=== PATIENT | male | born 1960 | race Two or more races ===

== ENCOUNTER 2019-05-10 05:29 | Day surgery (SDC) | payer OTHER ==
[2019-05-10] MEDS ORDERED: DICLOFENAC 0.1% 2.5 ML OPH (06:20)
[2019-05-10] MEDS ORDERED: TROPICAMIDE 1% 15 ML OPH (06:20)
[2019-05-10] MEDS ORDERED: CYCLOPENTOLATE/PHENYLEPH 2 ML OPH (06:20)
[2019-05-10] MEDS ORDERED: MOXIFLOXACIN 0.5% 3 ML OPH (06:20)
[2019-05-10] MEDS: TROPICAMIDE 1% 15 ML OPH OPER (06:23)
[2019-05-10] MEDS: MOXIFLOXACIN 0.5% 3 ML OPH OPER (06:23)
[2019-05-10] MEDS: DICLOFENAC 0.1% 2.5 ML OPH OPER (06:24)
[2019-05-10] MEDS: CYCLOPENTOLATE/PHENYLEPH 2 ML OPH OPER (06:24)
[2019-05-10] MEDS: SOD CHLORIDE 0.9% 1,000 ML IV (06:26)
[2019-05-10] MEDS: CARBACHOL 0.01% 1.5 ML OPH INJ IO (07:00)
[2019-05-10] MEDS: CEFAZOLIN 1 GM INJ INJ (07:00)
[2019-05-10] MEDS: LIDOCAINE 4% (MPF) 5 ML INJ INJ (07:00)
[2019-05-10] MEDS: DEXAMETHASONE 4 MG/ML 1 ML INJ INJ (07:00)
[2019-05-10] MEDS: LIDOCAINE 1% (MPF) 5 ML VIAL INJ (07:30)
[2019-05-10] MEDS ORDERED: PROPOFOL 20 ML (07:33)
[2019-05-10] MEDS ORDERED: LIDOCAINE 2% (SDV) 5 ML INJ (07:34)
[2019-05-10] MEDS ORDERED: FENTAnyl 50 MCG/ML VIAL (07:49)
[2019-05-10] MEDS ORDERED: MIDAZOLAM 1 MG/ML 2 ML INJ (07:50)
[2019-05-10] MEDS: HYDROCODONE/APAP (5/325) TAB PO (10:04)
== END 2019-05-10 11:40 | disposition home or self-care (01) ==
LOC: SDS 05:29
DX: H25.12 Age-related nuclear cataract, left eye (principal); E11.9 Type 2 diabetes mellitus without complications; I10 Essential (primary) hypertension; Z79.82 Long term (current) use of aspirin; Z79.84 Long term (current) use of oral hypoglycemic drugs
CPT/HCPCS: 66984; 82962